=== PATIENT | female | born 1945 | race Caucasian/White ===

== ENCOUNTER 2016-10-30 12:38 | Day surgery (SDC) | payer MEDICARE, OTHER ==
--- NOTE | ~2016-10-30 | EGD ---
EGD REPORT [facility] [address] [place] [address] NAME: ROSALINDA JETER : [birth year] [place] [facility] [place] [id number] AGE: 71 ADM/REG DATE : 10/30/16 MR#: [id number] REPORT SERV DATE: 10/30/16 DICTATED BY: LINDY VALIENTE DATE: 10/30/16 REPORT STATUS : Draft TRANSCRIBED BY: [employer] DATE: 10/30/16 [facility] Patient Name: Rosalinda Jeter Date of : 1945 Attending MD: LINDY VALIENTE MD Procedure Date No Time: 10/30/2016 Procedure: Upper GI endoscopy Indications: Iron deficiency anemia, Follow-up of acute gastric ulcer Referring MD: TIMOTHY GODINEZ Medicines: See the Anesthesia note for documentation of the administered medications Complications: No immediate complications. Procedure: Pre-Anesthesia Assessment: - ASA Grade Assessment: III - A patient with severe systemic disease. After obtaining informed consent, the endoscope was passed under direct vision. Throughout the procedure, the patient's blood pressure, pulse, and oxygen saturations were monitored continuously. The GIF [id number] was introduced through the mouth, and advanced to the second part of duodenum. The upper GI endoscopy was accomplished without difficulty. The patient tolerated the procedure well. Findings: The examined jejunum was normal. A small hiatus hernia was present. Normal gastric bypass anatomy Slightly irregular tissue at gastrojejunal anastomosis, Biopsies were taken with a cold forceps for histology. Impression: - Normal examined jejunum. - Hiatus hernia. - Normal gastric bypass anatomy - Slightly irregular tissue at gastrojejunal anastomosis Recommendation: - Patient has a contact number available for emergencies. The signs and symptoms of potential delayed complications were discussed with the patient. Return to normal activities tomorrow. Written discharge instructions were provided to the patient. - Regular diet. - Continue present medications. - FOR YOUR BIOPSY RESULTS: Please go to [email or web address] and register to receive your EGD REPORT [address] [address] NAME: ROSALINDA JETER : [birth year] [place] [facility] [place] [id number] AGE: 71 ADM/REG DATE : 10/30/16 MR#: [id number] REPORT SERV DATE: 10/30/16 DICTATED BY: LINDY VALIENTE DATE: 10/30/16 REPORT STATUS : Draft TRANSCRIBED BY: [employer] DATE: 10/30/16 results via the portal. Your biopsy results will be posted there in about 7 to 10 days. IF you do not see result in 10 days, call office. Procedure Code(s): --- Professional --- 19419, Esophagogastroduodenoscopy, flexible, transoral; with biopsy, single or multiple Diagnosis Code(s): --- Professional --- K44.9, Diaphragmatic hernia without obstruction or gangrene D50.9, Iron deficiency anemia, unspecified K25.3, Acute gastric ulcer without hemorrhage or perforation CPT copyright 2013 [employer]. All rights reserved. The codes documented in this report are preliminary and upon major assembly lineman review may be revised to meet current compliance requirements. Lindy Valiente MD LINDY VALIENTE MD 10/30/2016 3:43 PM This report has been signed electronically. Number of Addenda: 0 Note Initiated On: 10/30/2016 3:29 PM Scope Withdrawal Time 0 hours 0 minutes 0 seconds [address] [place] [address]
--- NOTE | ~2016-10-30 | EGD ---
EGD REPORT [facility] [address] [place] [address] NAME: ROSALINDA JETER : 47 STATUS : [place] [facility] [place] [id number] AGE: 71 ADM/REG DATE : 10/30/16 MR#: [id number] REPORT SERV DATE: 10/30/16 DICTATED BY: LINDY VALIENTE DATE: 10/30/16 REPORT STATUS : Draft TRANSCRIBED BY: [employer] DATE: 10/30/16 [facility] Center Patient Name: Rosalinda Jeter Date of : 1945 Attending MD: LINDY VALIENTE MD Procedure Date No Time: 10/30/2016 Procedure: Colonoscopy Indications: Heme positive stool, Iron deficiency anemia Referring MD: TIMOTHY GODINEZ Medicines: See the Anesthesia note for documentation of the administered medications Complications: No immediate complications. Procedure: Pre-Anesthesia Assessment: - ASA Grade Assessment: III - A patient with severe systemic disease. After I obtained informed consent, the scope was passed under direct vision. Throughout the procedure, the patient's blood pressure, pulse, and oxygen saturations were monitored continuously. The CF [id number] was introduced through the anus and advanced to the terminal ileum, with identification of the appendiceal orifice and IC valve. The colonoscopy was performed without difficulty. The patient tolerated the procedure well. The quality of the bowel preparation was adequate. Findings: The perianal and digital rectal examinations were normal. Internal hemorrhoids were found during retroflexion and were small. Impression: - Internal hemorrhoids. Recommendation: - Patient has a contact number available for emergencies. The signs and symptoms of potential delayed complications were discussed with the patient. Return to normal activities tomorrow. Written discharge instructions were provided to the patient. - Regular diet. - Continue present medications. - Repeat colonoscopy in 5 years for surveillance. Procedure Code(s): --- Professional --- 80692, Colonoscopy, flexible, proximal to splenic flexure; diagnostic, with or without collection of specimen(s) by brushing or washing, with or without colon decompression (separate procedure) EGD REPORT [facility] [address] [place]. [address] NAME: ROSALINDA JETER : 47 STATUS : [place] [facility] [place] [id number] AGE: 71 ADM/REG DATE : 10/30/16 MR#: [id number] REPORT SERV DATE: 10/30/16 DICTATED BY: LINDY VALIENTE DATE: 10/30/16 REPORT STATUS : Draft TRANSCRIBED BY: [employer] DATE: 10/30/16 Diagnosis Code(s): --- Professional --- K64.8, Other hemorrhoids R19.5, Other fecal abnormalities D50.9, Iron deficiency anemia, unspecified CPT copyright 2013 [employer]. All rights reserved. The codes documented in this report are preliminary and upon gas appliance servicer helper review may be revised to meet current compliance requirements. Lindy Valiente MD LINDY VALIENTE MD 10/30/2016 4:01 PM This report has been signed electronically. Number of Addenda: 0 Note Initiated On: 10/30/2016 3:25 PM Scope Withdrawal Time 0 hours 10 minutes 1 second [address] [place] [address]
[~2016-10-30 12:38] MED LIST: ACET500CAP PO; ASAB PO; ATEN25 PO; AVONEX IM; B12250T PO; BIOTIN5 MG PO; DIOV160 PO; DIOV80 PO; ERY-TAB333 MG PO; FORTAMET500 MG PO; HYDROCHLOROT25 MG PO; KLONO5 PO; LEVOTHYROXIN125 MCG PO; LEVOTHYROXIN150 MCG PO; LEXAPRO10 PO; LIPITOR20 PO; MAX25 PO; MICROZIDE PO; MULTI-VIT HP PO; NASONEX NAS; NEXIUM40 PO; PROAIR HFA INH; PROBIOTIC PO; SUCR PO; THERAPEUTIC PO; VITAMIN B-122500 MCG SL; VITAMIN D31000 UNIT PO; VITC500 PO
== END 2016-10-30 23:59 | disposition home or self-care (01) ==
LOC: DMU 12:38
PROVIDERS: Internal Medicine Gastroenterology
PROC: 0DJD8ZZ Inspection of Lower Intestinal Tract, Via Natural or Artificial Opening Endoscopic (ICD-10-PCS; 2016-10-30)
PROC: 0DBA8ZX Excision of Jejunum, Via Natural or Artificial Opening Endoscopic, Diagnostic (ICD-10-PCS; principal; 2016-10-30 14:30)
PROC: 0DB68ZX Excision of Stomach, Via Natural or Artificial Opening Endoscopic, Diagnostic (ICD-10-PCS; 2016-10-30 14:30)
DX: K29.50 Unspecified chronic gastritis without bleeding (principal); K44.9 Diaphragmatic hernia without obstruction or gangrene; D50.9 Iron deficiency anemia, unspecified; K25.3 Acute gastric ulcer without hemorrhage or perforation; K64.8 Other hemorrhoids; K63.89 Other specified diseases of intestine; R19.5 Other fecal abnormalities; G35 Multiple sclerosis; Z91.048 Other nonmedicinal substance allergy status; E78.00 Pure hypercholesterolemia, unspecified; I10 Essential (primary) hypertension; M19.90 Unspecified osteoarthritis, unspecified site; R01.1 Cardiac murmur, unspecified; E03.9 Hypothyroidism, unspecified; K21.9 Gastro-esophageal reflux disease without esophagitis; F32.9 Major depressive disorder, single episode, unspecified; F41.9 Anxiety disorder, unspecified; G47.33 Obstructive sleep apnea (adult) (pediatric); J45.909 Unspecified asthma, uncomplicated; H54.42 Blindness, left eye, normal vision right eye; Z88.2 Allergy status to sulfonamides; Z98.41 Cataract extraction status, right eye; Z98.42 Cataract extraction status, left eye; Z96.1 Presence of intraocular lens; Z90.49 Acquired absence of other specified parts of digestive tract; Z90.89 Acquired absence of other organs; Z98.84 Bariatric surgery status; Z96.651 Presence of right artificial knee joint; Z98.890 Other specified postprocedural states; Z99.81 Dependence on supplemental oxygen
CPT/HCPCS: 88305